=== PATIENT | female | born 1935 | race African-American/Black ===

== ENCOUNTER 2025-05-02 04:01 | Emergency (ER) | payer OTHER ==
[~2025-05-02] VITALS: Ht 167.6 cm; Wt 71.0 kg
[2025-05-02 04:04] VITALS: O2SAT 98
[2025-05-02 04:54] LABS: BASOPHILS % 0.7 % (0.0-2.0); EOSINOPHILS % 1.0 % (0.0-5.0); HEMATOCRIT. 33.4 % (36.0-48.0); HEMOGLOBIN. 11.0 g/dL (12.0-16.0); LYMPHOCYTES % 12.4 % (20.0-50.0); MEAN PLATELET VOLUME 8.1 fl (7.4-10.4); MONOCYTES % 4.8 % (2.0-8.0); NEUTROPHILS % 81.1 % (40.0-76.0); PLATELET 314 x1000/uL (130-400); RED BLOOD CELL COUNT 4.16 mill/uL (4.2-5.4); RED CELL DISTRIBUTION WIDTH 13.8 % (11.6-14.6)
[2025-05-02 05:06] LABS: INR 1.0
[2025-05-02 05:09] LABS: CREATININE 1.1 mg/dL (0.6-1.0)
[2025-05-02 05:10] LABS: TROPONIN I HIGH SENSITIVITY 4 ng/L (3.0-34); UREA NITROGEN BLOOD 13 mg/dL (9-23)
[2025-05-02 05:11] LABS: ASPARTATE AMINOTRANSFERASE 19 IU/L (<34)
[2025-05-02 05:12] LABS: BILIRUBIN DIRECT 0.1 mg/dL (<=3.0); BILIRUBIN TOTAL 0.4 mg/dL (0.1-1.0); PROTEIN TOTAL 7.2 g/dL (6.0-8.3)
[2025-05-02] MEDS: SODIUM CHLORIDE 0.9% 1,000 ML IV ONE (05:55)
[2025-05-02] MEDS ORDERED: SODIUM CHLORIDE 0.9% 500 ML IV SCH (07:30)
[2025-05-02] MEDS: ACETAMINOPHEN 500MG TABLET PO ONE (14:56)
[2025-05-02 18:21] LABS: COLOR URINE YELLOW (YELLOW); GLUCOSE URINE NEGATIVE (NEGATIVE); KETONES URINE NEGATIVE (NEGATIVE); LEUKOCYTE ESTERASE URINE 1+ (NEGATIVE); NITRITE URINE NEGATIVE (NEGATIVE); OCCULT BLOOD URINE 3+ (NEGATIVE); PH URINE 5.5 (4.5-8.0); PROTEIN URINE TRACE (NEGATIVE); SPECIFIC GRAVITY URINE 1.018 (1.005-1.030); UROBILINOGEN URINE 0.2 E.U./dL (0.2-1.0)
[2025-05-02 18:32] LABS: CLARITY URINE HAZY (CLEAR)
[2025-05-02 18:33] LABS: WBC URINE 0-2 /hpf (0-2)
[2025-05-02 18:34] LABS: BACTERIA URINE TRACE; MUCUS URINE TRACE /lpf (< = 2+); RBC URINE 0-2 /hpf (0-2); SQUAMOUS EPITHELIAL CELL URINE FEW /lpf (RARE/1+)
[2025-05-02] MEDS: KETOROLAC 15MG/ML VIAL IV ONE (18:57)
[2025-05-02] MEDS: ONDANSETRON HCL 4MG/2ML INJ IV ONE (18:57)
[2025-05-02] MEDS: CEFTRIAXONE 1GM/50ML 50 ML IV ONE (19:27)
[2025-05-02 21:56] VITALS: BP 148/80; PULSE 98; RESP 12; TEMP 36.7; O2SAT 100
== END 2025-05-02 22:05 | disposition short-term general hospital (02) ==
LOC: ER 04:01 → CMPBEDREQ 05-03 07:25
DX: R53.1 Weakness (principal); R31.9 Hematuria, unspecified; I10 Essential (primary) hypertension; E11.9 Type 2 diabetes mellitus without complications; Z20.822 Contact with and (suspected) exposure to COVID-19
CPT/HCPCS: 99285; 96365; 96375; 71045; 96361; 87426; 80076; 80048; 81003; 85025; 85610; 85730; 86850; 86900; 86901; 84484; 36415; 93005; J1885; J0696; J2405; J7030